=== PATIENT | female | born 1965 | race Caucasian/White ===

== ENCOUNTER 2020-05-24 08:41 | Day surgery (SDC) | payer OTHER ==
[2020-05-24] MEDS ORDERED: VECURONIUM 10 MG/VIAL IV ONE ×2 (08:58→12:13)
[2020-05-24] MEDS ORDERED: LANO/MINERAL OIL/PETRO 3.5 GM ONE (08:58)
[2020-05-24] MEDS ORDERED: ONDANSETRON 4 MG/2 ML VIAL ONE ×3 (09:01→15:07)
[2020-05-24] MEDS ORDERED: LIDOCAINE 1% MPF 5 ML VIAL ONE (09:01)
[2020-05-24] MEDS ORDERED: propofoL 200 MG/20 ML VIAL IV ONE (09:01)
[2020-05-24] MEDS ORDERED: NS 0.9% VIAL 10 ML ONE ×2 (09:01→12:13)
[2020-05-24] MEDS ORDERED: MIDAZOLAM HCL 2 MG/2 ML INJ ONE (09:01)
[2020-05-24] MEDS ORDERED: dexAMETHasone 10 MG/ML VIAL ONE (09:01)
[2020-05-24] MEDS ORDERED: FENTANYL CITR 250 MCG/5 ML ONE (09:01)
[2020-05-24] MEDS ORDERED: GENTAMICIN SULF 80 MG/2ML INJ ONE (09:14)
[2020-05-24] MEDS ORDERED: NS 0.9% VIAL 40 ML ONE (09:14)
[2020-05-24] MEDS ORDERED: CEFAZOLIN SODIUM 1 GM/VIAL ONE (09:14)
[2020-05-24] MEDS ORDERED: LIDOCAINE 1% W/EPI 1:100,000 MDV 20 ML VIAL ONE (09:15)
[2020-05-24] MEDS ORDERED: BACITRACIN 50000 UNIT VIAL ONE (09:15)
[2020-05-24] MEDS ORDERED: Ringers Lactate 1,000 ML IV ONE ×3 (09:15→09:17)
[2020-05-24] MEDS ORDERED: Mastisol Adhesive Liq ONE (09:15)
[2020-05-24] MEDS ORDERED: CEFAZOLIN/SWI 1gm 1 GM/10 ML SYR ONE (09:18)
[2020-05-24] MEDS ORDERED: SCOPOLAMINE HYDROBROMIDE PATCH TD ONE (10:00)
[2020-05-24] MEDS ORDERED: EPHEDRINE SULF 50 MG/ML VIAL ONE (10:37)
[2020-05-24] MEDS ORDERED: GLYCOPYRROLATE 0.2 MG/ML SYR ONE (12:57)
[2020-05-24] MEDS ORDERED: KETOROLAC 30 MG/ML INJ ONE (12:58)
[2020-05-24] MEDS ORDERED: NEOSTIGMINE 1 MG/ML -5 ML ONE (12:58)
[2020-05-24] MEDS: HYDROMORPHONE HCL 1 MG/ML INJ ONE ×4 (14:00→14:27)
[2020-05-24] MEDS: MEPERIDINE HCL 25 MG/ML SYR ONE ×4 (14:01→14:37)
[2020-05-24 14:28] VITALS: TEMP 97.2
[2020-05-24] MEDS ORDERED: PROMETHAZINE INJ 25 MG/ML AMP ONE (17:06)
[2020-05-24] MEDS ORDERED: METOCLOPRAMIDE 10 MG/2mL INJ ONE (17:06)
[2020-05-24 17:37] VITALS: BP 117/63; O2SAT 97
--- NOTE | 2020-05-25 00:09 | OP ---
Surgeon: Griffin Wylie MD Chairman: Sukumar. Preoperative Diagnosis: Breast descent after implants. Postoperative Diagnosis: Breast descent after implants. Procedure Performed: Explantation and breast lift. Anesthesia: General. Operative Note: After satisfactory induction of general anesthesia, the chest was prepped with DuraP rep, dry sterile drapes applied in the usual manner. A 45 template was used to outline the right and left areola. Then, the transverse curvilinear incision was made. Intervening skin was de-epithelia lized with dermabrader or EpiCut. Then, a transverse incision was made with electrocautery. Flap wa s thinned to 1 cm thickness and elevated towards the sternum, clavicle, anterior axillary line bilate ral. Then, inferior incision was made and the implants were then encountered at the cephalad positio n using electrocautery and at 12 o'clock position. Both breast implants were removed. There was shai ine intact. They weighed 254 on the right and 250 in the left. Then, the patient had conization per formed. This was done by using 2-0 PDS sutures to sew the de-epithelialized laura-circles into cone a nd strapped to 12 o'clock, 1:30, and 3 o'clock position on both sides and the straps were then woven in and out the pectoralis muscle back to base of cone, tied themselves with 2- 0 PDS suture. This wa s done for the 12 o'clock and 130 straps on the right breast, 3 o'clock strap was sewn over the read um at 3 o'clock position with 2 [place] on the right side. Mirror image was done on the left side. The wound was carefully stapled shut. The patient was sat up. Dog ears marked out. The patient re turned supine. A 10-ANABEL was brought out the axilla, sewn in place with 2-0 silk. The skin and excess dog ears were excised with a scalpel forceps and electrocautery was used for hemostasis. Wound clos ed in layers using 3-0 Vicryl subcu, 3-0 PDS running subcuticular, tied in the vertical meridian of t he breast. After both sides were done, the patient was sat up. Site for new nipple-areolar complex was marked out. The patient returned supine. Tissue cored out with a 42 mm template and then the ni pple-areolar complex was delivered, sewn with interrupted 4-0 PDS followed by 4-0 PDS running subcuti cular. Dressings consisted of tincture of benzoin, Steri-Strips, 5 x 5s, fluffs, and Carlito wrap. The patient tolerated the procedure well. The amount removed from the right breast was 6 g, left breast was 18 g. RICK/HARSHA Voice ID: [id number] Report ID: [id number]
== END 2020-05-24 17:55 | disposition home or self-care (01) ==
LOC: OR 08:41
PROVIDERS: ATTEND Specialist
PROC: 0HPT0JZ Removal of Synthetic Substitute from Right Breast, Open Approach (ICD-10-PCS; 2020-05-24)
PROC: 0HPU0JZ Removal of Synthetic Substitute from Left Breast, Open Approach (ICD-10-PCS; principal; 2020-05-24 09:00)
DX: N64.81 Ptosis of breast (principal); Z45.812 Encounter for adjustment or removal of left breast implant; Z45.811 Encounter for adjustment or removal of right breast implant; Z88.6 Allergy status to analgesic agent; Z91.040 Latex allergy status
CPT/HCPCS: 88305; 19328; U0002; J2704; J2765; J2550; J1580; J2250; J3010; J1100; J2175 ×2; J1170 ×2; J2710; J0690 ×2; J7120 ×3; J2405 ×3

== ENCOUNTER 2021-02-02 08:30 | Day surgery (SDC) | payer OTHER ==
--- NOTE | 2021-02-02 08:42 | RAD REPORT ---
EXAM DESCRIPTION: RAD - Chest Pa And Lat (2 Views) - 02/02/2021 8:24 am CLINICAL HISTORY: preop, pending breast surgery COMPARISON: None TECHNIQUE: Frontal and lateral views of the chest were obtained. FINDINGS: The lungs are clear. Heart size is normal and central vasculature is within normal limit s. No pleural effusion or pneumothorax seen. No acute bony finding noted. No aortic abnormality. IMPRESSION: No acute cardiopulmonary process.
[2021-02-02] MEDS ORDERED: Ringers Lactate 1,000 ML IV ONE (09:44)
[2021-02-02] MEDS ORDERED: CEFAZOLIN/SWI 1gm 1 GM/10 ML SYR ONE (09:45)
[2021-02-02] MEDS ORDERED: NA CHLORIDE 0.9% 1,000 ML ONE ×3 (09:54→10:06)
[2021-02-02] MEDS ORDERED: EPINEPHRINE/PF 1 MG/ML AMP ONE ×4 (09:54→11:12)
[2021-02-02] MEDS ORDERED: ACETAMINOPHEN 500 MG TAB ONE (10:08)
[2021-02-02] MEDS ORDERED: SCOPOLAMINE HYDROBROMIDE PATCH TD ONE (10:08)
[2021-02-02] MEDS ORDERED: CELECOXIB 100 MG CAPSULE ONE (10:08)
[2021-02-02] MEDS ORDERED: dexAMETHasone 10 MG/ML VIAL ONE (10:52)
[2021-02-02] MEDS ORDERED: NS 0.9% VIAL 10 ML ONE (10:52)
[2021-02-02] MEDS ORDERED: LIDOCAINE 1% MPF 5 ML VIAL ONE (10:52)
[2021-02-02] MEDS ORDERED: propofoL 200 MG/20 ML VIAL IV ONE (10:52)
[2021-02-02] MEDS ORDERED: FENTANYL CITR 250 MCG/5 ML ONE (10:52)
[2021-02-02] MEDS ORDERED: MIDAZOLAM HCL 2 MG/2 ML INJ ONE (10:52)
[2021-02-02] MEDS ORDERED: VECURONIUM 10 MG/VIAL IV ONE (10:53)
[2021-02-02] MEDS ORDERED: LANO/MINERAL OIL/PETRO 3.5 GM ONE (10:53)
[2021-02-02] MEDS ORDERED: ONDANSETRON 4 MG/2 ML VIAL ONE ×2 (10:53→15:04)
[2021-02-02] MEDS ORDERED: NA CHLORIDE 0.9% 2,000 ML ONE (11:13)
[2021-02-02] MEDS ORDERED: Ringers Lactate 2,000 ML IV ONE (11:13)
[2021-02-02] MEDS ORDERED: KETOROLAC 30 MG/ML INJ ONE (11:55)
[2021-02-02] MEDS ORDERED: Phenylephrine HCl 10 MG/ML 1 ML VIAL ONE (13:05)
[2021-02-02] MEDS ORDERED: Mastisol Adhesive Liq ONE (14:06)
[2021-02-02] MEDS ORDERED: GLYCOPYRROLATE 0.2 MG/ML SYR ONE (14:11)
[2021-02-02] MEDS ORDERED: NEOSTIGMINE 1 MG/ML -5 ML ONE (14:28)
[2021-02-02] MEDS ORDERED: MEPERIDINE HCL 25 MG/ML SYR ONE (14:57)
[2021-02-02] MEDS ORDERED: HYDROMORPHONE HCL 1 MG/ML INJ ONE (15:04)
[2021-02-02] MEDS ORDERED: PROMETHAZINE INJ 25 MG/ML AMP ONE (15:41)
[2021-02-02] MEDS ORDERED: CODEINE 30MG/APAP 300MG TAB ONE (17:23)
[2021-02-02 17:30] VITALS: BP 107/63; TEMP 97.7; O2SAT 99
[2021-02-02] MEDS ORDERED: HYDROCODONE/APAP 7.5/325 MG TAB ONE (18:14)
--- NOTE | 2021-02-06 11:39 | OP ---
Surgeon: Griffin Wylie MD Preoperative Diagnoses: Lipodystrophy, hypomastia and scar, status post breast explant and lift. Procedures Performed: fat transfer to the left breast, scar revision of right and left breast. Anesthesia: General. Procedure In Detail: After satisfactory induction of general anesthesia, the patient's thighs were prepped circumferentially from the calf up and abdomen, flanks, chest and arms. The patient had drapes placed behind the torso in sterile areas. This had been prepped. Stockinette was placed over the legs. The arm was then covered with sheets in routine manner. The pubic areas were covered and liposuction was performed first. The right flank had 650 mL in, left flank had 700 mL in, right thigh had 500 mL in, left thigh had 550 mL in. Then, the patient had liposuction of the right flank 700 mL out, left flank 700 mL out, the right medial knee 150 out, the left medial knee 140 out, right medial thigh 400 out, left medial thigh 400 out, anterior thigh right 250 and left was 350. 4-0 PDS sutures were used to close 2 of the incisions in the thigh, 2 near the knee and 1 from the flank and left open. Attention was then turned to the breast . The patient was marked out for the intended incision to reposition inframammary fold. The intervening skin was excised with a scalpel and then down to fascia . The wound was then closed with 3-0 Vicryl interrupted and 3-0 PDS running subcuticular, tied in the vertical meridian of the breast after flap transfer was performed . the fat was then injected into the right breast throughout and then the sutures tied. Dressed with tinc of benzoin, Steri-Strips, fluffs, and Carlito wrap _ and left abdomen incision was left open. RICK/HARSHA Voice ID: [id number] Report ID: [id number] HERNESTO
--- NOTE | 2021-02-07 10:47 | OP ---
Surgeon: Griffin Wylie MD Preoperative Diagnoses: Lipodystrophy, hypomastia and scar, status post breast explant and lift. Procedures Performed: Liposuction of the flanks and thighs with fat transfer to the right and left breast, scar revision of right and left breast. Anesthesia: General. Procedure In Detail: After satisfactory induction of general anesthesia, the patient's thighs were prepped circumferentially from the calf up and abdomen, flanks, chest and arms. The patient had drapes placed behind the torso . This had been prepped. Stockinette was placed over the legs. The arm was then covered with sheets in routine manner. The pubic areas were covered and liposuction was performed first. The right flank had 650 mL in, left flank had 700 mL in, right thigh had 500 mL in, left thigh had 550 mL in. Then, the patient had liposuction of the right flank 700 mL out, left flank 700 mL out, the right medial knee 150 out, the left medial knee 140 out, right medial thigh 400 out, left medial thigh 400 out, anterior thigh right 250 and left was 350. Total amount infused was 2400. Total amount removed was 3100. 4-0 PDS sutures were used to close 2 of the incisions in the thigh, 2 near the knee and 1 from the flank and left open. Attention was then turned to the breast . The patient was marked out for the intended incision to reposition inframammary fold. The intervening skin was excised with a scalpel and then down to fascia. The wound was then closed with 3-0 Vicryl interrupted and 3-0 PDS running subcuticular, tied in the vertical meridian of the breast after flap transfer was performed . the fat was then injected into the right breast throughout and then the sutures tied. Dressed with tincture of benzoin, Steri-Strips, fluffs, and Carlito wrap. A liposuction garment was applied to the extremities and the left abdomen. GH/MODL Voice ID: [id number] Report ID: [id number] HERNESTO
== END 2021-02-02 18:45 | disposition home or self-care (01) ==
LOC: OR 08:30
PROVIDERS: ATTEND Specialist
PROC: 0HB5XZZ Excision of Chest Skin, External Approach (ICD-10-PCS; 2021-02-02)
PROC: 0H0V07Z Alteration of Bilateral Breast with Autologous Tissue Substitute, Open Approach (ICD-10-PCS; 2021-02-02)
PROC: 0J083ZZ Alteration of Abdomen Subcutaneous Tissue and Fascia, Percutaneous Approach (ICD-10-PCS; principal; 2021-02-02 10:00)
PROC: 0J0M3ZZ Alteration of Left Upper Leg Subcutaneous Tissue and Fascia, Percutaneous Approach (ICD-10-PCS; 2021-02-02 10:00)
PROC: 0J0L3ZZ Alteration of Right Upper Leg Subcutaneous Tissue and Fascia, Percutaneous Approach (ICD-10-PCS; 2021-02-02 10:00)
DX: E65 Localized adiposity (principal); L90.5 Scar conditions and fibrosis of skin; N64.82 Hypoplasia of breast; Z20.822 Contact with and (suspected) exposure to COVID-19
CPT/HCPCS: 15877; 15879; 11406; 15771; 15772 ×7; 93005; 71046; U0003; J2704; J0171 ×3; J2550; J2370; J2250; J3010; J1100; J2175; J1170; J2710; J0690; J7120 ×2; J7030 ×4; J2405 ×2